=== PATIENT | female | born 1995 | race Two or more races ===

== ENCOUNTER 2016-09-10 10:52 | Emergency (ER) | payer BC, MEDICAID ==
[~2016-09-10] VITALS: Ht 154.9 cm; Wt 125.7 kg
[~2016-09-10 10:52] MED LIST: ASCO500T6 PO; CIPR500T3 PO; FERR325T20 PO; LABE100T3 PO; LABE200T3 PO; METF500T PO; OXYC-302 PO; PREN1TAB60 PO
[2016-09-10] MEDS ORDERED: MORPHINE SULFATE 4 MG/ML, 1ML IVPush PRN (12:00)
[2016-09-10] MEDS ORDERED: PHENAZOPYRIDINE 200 MG TABLET PO ONE (12:00)
[2016-09-10] MEDS ORDERED: SODIUM CHLORIDE 0.9% 1,000ML IVBOLUS ONE (12:00)
[2016-09-10] MEDS ORDERED: ONDANSETRON 2MG/ML, 2ML IVPush ONE (12:00)
[2016-09-10] MEDS ORDERED: PHENAZOPYRIDINE 200 MG TABLET ONE (12:01)
[2016-09-10] MEDS ORDERED: MORPHINE SULFATE 4 MG/ML, 1ML ONE (12:01)
[2016-09-10] MEDS ORDERED: ONDANSETRON 2MG/ML, 2ML ONE (12:01)
[2016-09-10 12:10] LABS: BLOOD UREA NITROGEN 8 mg/dL (7-18)
[2016-09-10 12:17] LABS: ASPARTATE AMINO TRANSFERASE 34 U/L (15-37)
[2016-09-10 13:43] VITALS: BP 133/73
== END 2016-09-10 13:53 | disposition home or self-care (01) ==
LOC: ED 13:20
DX: N30.90 Cystitis, unspecified without hematuria (principal); Z98.890 Other specified postprocedural states
CPT/HCPCS: 36415; 80053; 81001; 84703; 87077; 87086; 87186; 96361; 96374; 96375; 99284; J2405; J7030

== ENCOUNTER 2016-10-06 12:00 | Emergency (ER) | payer MEDICAID, OTHER ==
[~2016-10-06] VITALS: Ht 162.6 cm; Wt 91.0 kg
[~2016-10-06 12:00] MED LIST changes: +FERR325T18 PO; -FERR325T20 PO
[2016-10-06] MEDS ORDERED: NITR100C56 PO (12:14)
[2016-10-06 14:04] VITALS: BP 154/86
== END 2016-10-06 14:06 | disposition home or self-care (01) ==
LOC: ED 13:32
DX: M25.552 Pain in left hip (principal); N83.209 Unspecified ovarian cyst, unspecified side
CPT/HCPCS: 99284

== ENCOUNTER 2017-01-20 12:27 | Emergency (ER) | payer BC, OTHER ==
[~2017-01-20] VITALS: Ht 162.6 cm; Wt 121.3 kg
[~2017-01-20 12:27] MED LIST changes: +NITR100C56 PO
[2017-01-20] MEDS ORDERED: ONDANSETRON 2MG/ML, 2ML IVPush ONE (13:00)
[2017-01-20] MEDS ORDERED: SODIUM CHLORIDE 0.9% 1,000ML IVBOLUS ONE (13:00)
[2017-01-20] MEDS ORDERED: SODIUM CHLORIDE FLUSH 10ML SYR IVF ONE (13:00)
[2017-01-20] MEDS ORDERED: FAMOTIDINE 20 MG/2 ML IVP ONE (13:00)
[2017-01-20] MEDS ORDERED: ONDANSETRON 2MG/ML, 2ML ONE (13:04)
[2017-01-20] MEDS ORDERED: HYDROmorphone 2 MG/ML, 1ML ONE ×2 (13:04→14:37)
[2017-01-20] MEDS: HYDROmorphone 1 MG/ML, 1ML IVPush PRN ×2 (13:08→14:41)
[2017-01-20 13:11] LABS: HEMATOCRIT 39.6 % (34.6-47.8); HEMOGLOBIN 12.8 g/dL (11.7-16.4); WHITE BLOOD COUNT 6.4 x10^3/uL (3.4-10)
[2017-01-20 13:22] LABS: ASPARTATE AMINO TRANSFERASE 23 U/L (15-37); BLOOD UREA NITROGEN 7 mg/dL (7-18)
[2017-01-20 15:55] VITALS: BP 136/76
== END 2017-01-20 15:59 | disposition home or self-care (01) ==
LOC: ED 14:05
DX: N30.01 Acute cystitis with hematuria (principal); N83.202 Unspecified ovarian cyst, left side
CPT/HCPCS: 36415; 76830; 80053; 81001; 83690; 84703; 85025; 87077; 87086; 87186; 96361; 96374; 96375; 96376; 99285; J1170; J2405; J7030

== ENCOUNTER 2019-01-01 09:29 | Emergency (ER) | payer SELFPAY ==
[~2019-01-01] VITALS: Ht 162.6 cm; Wt 121.5 kg
[~2019-01-01 09:29] MED LIST changes: +ASCO500T23 PO; +FERR324T5 PO; -LABE100T3 PO; +LABE100T6 PO; -LABE200T3 PO; +LABE200T6 PO; +METF850T PO; +OSEL75CA26 PO
[2019-01-01 09:58] VITALS: BP 171/101
--- NOTE | 2019-01-01 10:29 | NUR ---
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
[2019-01-01] MEDS ORDERED: ONDANSETRON ODT 4 MG ONE (11:00)
[2019-01-01] MEDS ORDERED: ONDANSETRON ODT 4 MG PO ONE (11:00)
[2019-01-01] MEDS ORDERED: KETOROLAC 60 MG/2 ML IM ONE (11:00)
[2019-01-01] MEDS ORDERED: KETOROLAC 60 MG/2 ML ONE (11:00)
[2019-01-01] MEDS ORDERED: KETOROLAC 30 MG/1 ML IM ONE (11:00)
--- NOTE | 2019-01-01 11:00 | NUR ---
PT HAS CO OF ABDOMINAL PAIN AND DYSURIA STARTING THIS AM
[2019-01-01 11:27] LABS: MICROSCOPIC INDICATED
[2019-01-01 11:29] LABS: MEAN CORPUSCULAR HEMOGLOBIN 18.8 pg (27.0-34.8); MEAN CORPUSCULAR VOLUME 63.8 fL (80-100); MEAN PLATELET VOLUME 7.7 fL (7.4-10.4); PLATELET COUNT 323 x10^3/uL (130-400); RED BLOOD COUNT 4.95 x10^6/uL (3.82-5.3); RED CELL DISTRIBUTION WIDTH 19.8 % (9.6-15.2)
[2019-01-01 11:36] LABS: CHLORIDE 111 mmol/L (98-107)
[2019-01-01 11:45] LABS: CULTURE INDICATED? YES
[2019-01-01 11:53] LABS: ALBUMIN 3.4 g/dL (3.4-5.0); ANION GAP 5 mmol/L (5-15); CALCIUM 8.4 mg/dL (8.5-10.1)
--- NOTE | 2019-01-01 11:59 | NUR ---
Patient/Caregiver given discharge instructions and they have confirmed that they understand the instructions. Patient ambulatory with steady gait.
[2019-01-01] MEDS ORDERED: OXYcodone/APAP 5/325MG TABLET ONE (12:09)
[2019-01-01 12:17] LABS: % IRON SATURATION 3 % (20-55); IRON LEVEL 15 mcg/dL (50-170); TOTAL IRON BINDING CAPACITY 486 mcg/dL (250-450)
[2019-01-01 12:28] LABS: BASOPHILS # (AUTO) 0.08 x10^3/uL (0-0.1); BASOPHILS % (AUTO) 1 % (0-1); EOSINOPHILS # (AUTO) 0.01 x10^3/uL (0-0.4); EOSINOPHILS % (AUTO) 0 % (1-7); LYMPHOCYTES # (AUTO) 1.47 x10^3/uL (1-3.4); LYMPHOCYTES % (AUTO) 12 % (22-44); MD MORPH REVIEW ONLY; MONOCYTES # (AUTO) 0.34 x10^3/uL (0.2-0.8); MONOCYTES % (AUTO) 3 % (2-9); NEUTROPHILS # (AUTO) 10.17 x10^3/uL (1.8-6.8); NEUTROPHILS % (AUTO) 84 % (42-75)
[2019-01-01 12:29] LABS: MEAN CORPUSCULAR HGB CONC 29.4 g/dL (32.4-35.8)
[2019-01-01] MEDS ORDERED: OXYcodone/APAP 5/325MG TABLET PO ONE (12:30)
[2019-01-01 12:35] LABS: ANISOCYTOSIS 2+; HYPOCHROMIA 2+; MICROCYTOSIS 2+
[2019-01-01 12:36] LABS: <PLATELET ESTIMATE> ADEQUATE; <PLT MORPHOLOGY> NORMAL PLT MORPH; OVALOCYTES 1+; POLYCHROMASIA 1+
== END 2019-01-01 12:18 | disposition home or self-care (01) ==
LOC: ED 12:00
DX: N30.00 Acute cystitis without hematuria (principal); N83.292 Other ovarian cyst, left side; N83.291 Other ovarian cyst, right side; D50.9 Iron deficiency anemia, unspecified
CPT/HCPCS: 36415; 76830; 80048; 81001; 82040; 83540; 83550; 84703; 85025; 87077; 87086; 87186; 96372; 99284; J1885; Q0162

== ENCOUNTER 2019-04-17 03:23 | Emergency (ER) | payer OTHER ==
[~2019-04-17] VITALS: Ht 162.6 cm; Wt 120.5 kg
[2019-04-17] MEDS ORDERED: AMOXICILLIN/CLAV 875-125MG TABLET ONE (03:49)
[2019-04-17] MEDS ORDERED: OXYcodone/APAP 5/325MG TABLET ONE (03:49)
[2019-04-17] MEDS ORDERED: AMOXICILLIN/CLAV 875-125MG TABLET PO STA (03:50)
[2019-04-17] MEDS ORDERED: OXYcodone/APAP 5/325MG TABLET PO ONE (04:00)
[2019-04-17 04:02] VITALS: BP 145/86
== END 2019-04-17 04:05 | disposition home or self-care (01) ==
LOC: ED 03:45
DX: K08.89 Other specified disorders of teeth and supporting structures (principal)
CPT/HCPCS: 99283

== ENCOUNTER 2019-08-18 18:23 | Emergency (ER) | payer OTHER ==
[~2019-08-18] VITALS: Ht 162.6 cm; Wt 122.8 kg
[~2019-08-18 18:23] MED LIST changes: -ASCO500T6 PO; +ASCO500T9 PO
--- NOTE | 2019-08-18 19:45 | NUR ---
piv placed from which labs were drawn hypertensive on manager cardiac cath upper thoracic pain-> both ue sbp equal
[2019-08-18] MEDS ORDERED: LIDODERM 5% PATCH TD ONE ×2 (19:48→20:00)
[2019-08-18] MEDS ORDERED: DIAZEPAM 5 MG/ML, 2ML ONE (19:48)
[2019-08-18] MEDS ORDERED: KETOROLAC 30 MG/1 ML ONE (19:48)
[2019-08-18] MEDS ORDERED: KETOROLAC 30 MG/1 ML IVPush ONE (20:00)
[2019-08-18] MEDS ORDERED: DIAZEPAM 5 MG/ML, 2ML IV ONE (20:00)
--- NOTE | 2019-08-18 20:09 | NUR ---
ua sent to lab with reasessment pain only slightly improved to 5/10
[2019-08-18 20:12] LABS: BASOPHILS # (AUTO) 0.02 x10^3/uL (0-0.1); BASOPHILS % (AUTO) 0 % (0-1); EOSINOPHILS # (AUTO) 0.03 x10^3/uL (0-0.4); EOSINOPHILS % (AUTO) 1 % (1-7); LYMPHOCYTES % (AUTO) 29 % (22-44); MD NO; MEAN CORPUSCULAR HEMOGLOBIN 22.7 pg (27.0-34.8); MEAN CORPUSCULAR HGB CONC 30.8 g/dL (32.4-35.8); MEAN CORPUSCULAR VOLUME 73.6 fL (80-100); MEAN PLATELET VOLUME 9.1 fL (7.4-10.4); MONOCYTES # (AUTO) 0.57 x10^3/uL (0.2-0.8); MONOCYTES % (AUTO) 8 % (2-9); NEUTROPHILS # (AUTO) 4.65 x10^3/uL (1.8-6.8); NEUTROPHILS % (AUTO) 63 % (42-75); PLATELET COUNT 288 x10^3/uL (130-400); RED BLOOD COUNT 5.23 x10^6/uL (3.82-5.3); RED CELL DISTRIBUTION WIDTH 20.1 % (9.6-15.2)
--- NOTE | 2019-08-18 20:16 | NUR ---
patient with room air sat with good waveform of 85% rapidly improved to 96% with rest placed back on 2l nc for comfort Provider made aware
[2019-08-18 20:17] LABS: ALANINE AMINOTRANSFERASE 24 U/L (12-78); ALBUMIN 3.4 g/dL (3.4-5.0); ANION GAP 6 mmol/L (5-15); CALCIUM 8.4 mg/dL (8.5-10.1); CHLORIDE 111 mmol/L (98-107); CREATININE 0.91 mg/dL (0.55-1.02)
[2019-08-18] MEDS ORDERED: MORPHINE SULFATE 4 MG/ML, 1ML ONE (20:20)
[2019-08-18 20:22] LABS: ALKALINE PHOSPHATASE 85 U/L (45-117); BILIRUBIN,TOTAL 0.5 mg/dL (0.2-1.0); TOTAL PROTEIN 8.3 g/dL (6.4-8.2)
[2019-08-18 20:24] LABS: MICROSCOPIC NOT IND
[2019-08-18] MEDS ORDERED: ONDANSETRON 2MG/ML, 2ML ONE (20:25)
[2019-08-18] MEDS ORDERED: MORPHINE SULFATE 4 MG/ML, 1ML IVPush PRN (20:30)
[2019-08-18] MEDS ORDERED: ONDANSETRON 2MG/ML, 2ML IVPush ONE (20:30)
[2019-08-18 20:57] LABS: TROPONIN I < 0.015 ng/mL (0.000-0.045)
[2019-08-18] MEDS ORDERED: OMNIPAQUE 350 MG/ML, 75ML BOTTLE ONE (21:07)
[2019-08-18 21:16] VITALS: BP 157/75
== END 2019-08-18 22:10 | disposition home or self-care (01) ==
LOC: ED 21:15
DX: S29.012A Strain of muscle and tendon of back wall of thorax, initial encounter (principal); M62.830 Muscle spasm of back; I11.9 Hypertensive heart disease without heart failure; R06.02 Shortness of breath; R11.10 Vomiting, unspecified; R94.31 Abnormal electrocardiogram [ECG] [EKG]; R10.11 Right upper quadrant pain; Z90.49 Acquired absence of other specified parts of digestive tract; X58.XXXA Exposure to other specified factors, initial encounter; Y93.89 Activity, other specified; Y92.89 Other specified places as the place of occurrence of the external cause; Y99.8 Other external cause status
CPT/HCPCS: 36415; 71045; 71275; 80053; 81003; 83690; 83880; 84484; 84703; 85025; 85379; 93005; 96374; 96375; 99285; J1885; J2270; J2405; J3360; Q9967

== ENCOUNTER 2019-09-08 07:30 | Outpatient (CLI) | payer OTHER | END 2019-09-08 23:59 | disposition home or self-care (01) | LOC: CVU 07:30 | PROVIDERS: ATTEND Internal Medicine | DX: I51.7 Cardiomegaly (principal) | CPT/HCPCS: 93306; 93356 ==